=== PATIENT | female | born 1970 | race African-American/Black ===

== ENCOUNTER 2017-02-14 00:14 | Emergency (ER) | payer OTHER ==
[2017-02-14 01:12] VITALS: BP 146/87; PULSE 89; TEMP 98.1; BMI 24.3
[2017-02-14] MEDS ORDERED: CLINDAMYCIN HCL 150 MG CAPSULE (FP) PO ONE (01:43)
[2017-02-14] MEDS ORDERED: traMADol HCL 50 MG TABLET PO ONE (01:43)
[2017-02-14] MEDS ORDERED: traMADol HCL 50 MG TABLET ONE (01:44)
[2017-02-14] MEDS ORDERED: CLINDAMYCIN HCL 150 MG CAPSULE (FP) ONE (01:44)
--- NOTE | 2017-02-14 01:51 | PDOC ---
History of Present Illness - General Chief Complaint: Toothache Stated Complaint: TOOTHACHE Time Seen by Provider: 02/14/17 01:15 History Source: Patient Exam Limitations: No Limitations - History of Present Illness Initial Comments: 02/14/17 01:47 46yo Female patient w/ PmHx: Diabetes presents to ED c/o dental pain. Patient states she went to see her dentist today, had cleaning done, and felt her gums were a little irritated. Patient states last night 10/10 dental pain, took 800mg Motrin with no relief. She denies fever, CP, Abd pain, Back pain, n/v/d, or any other complaints at this time. Timing/Duration: getting worse Severity: moderate Modifying Factors: worse with: cold therapy, eating, immobilization, medication , movement, rest, other Associated Symptoms: denies: denies symptoms, chest pain, cough, diaphoresis, fever/chills, headaches, loss of appetite, malaise, nausea/vomiting, rash, seizure, shortness of breath, syncope, weakness, other Past History - Travel Traveled outside of the country in the last 30 days: No Close contact w/someone who was outside of country & ill: No - Past Medical History Allergies/Adverse Reactions: Allergies Allergy/AdvReac Type Severity Reaction Status Date / Time morphine Allergy Itching Verified 02/14/17 01:12 Home Medications: Ambulatory Orders Ibuprofen [Motrin -] 800 mg PO TID #30 tablet 02/21/15 Buspirone HCl 100 mg PO DAILY 02/14/17 Clindamycin [Cleocin -] 300 mg PO ONCE #1 capsule 02/14/17 Clindamycin [Cleocin -] 300 mg PO TID #21 capsule 02/14/17 Insulin Degludec [Tresiba Flextouch U-100] 70 units SQ DAILY 02/14/17 Metoprolol Tartrate [Lopressor -] 25 mg PO DAILY 02/14/17 Sertraline HCl [Zoloft] 100 mg PO DAILY 02/14/17 Tramadol HCl 50 mg PO Q6H PRN #16 tablet MDD 4 tab 02/14/17 COPD: Yes Diabetes: Yes (borderline) HTN: Yes Suicide Attempt (Hx): No - Surgical History Abdominal Surgery: Yes Cholecystectomy: Yes - Immunization History Immunization Up to Date: Yes - Psycho/Social/Smoking Cessation Hx Anxiety: No Suicidal Ideation: No Smoking Status: No Smoking History: Never smoked Have you smoked in the past 12 months: No Number of Cigarettes Smoked Daily: 0 If you are a former smoker, when did you quit?: 2004 Information on smoking cessation initiated: No Hx Alcohol Use: No Drug/Substance Use Hx: No Substance Use Type: None Review of Systems - Review of Systems Able to Perform ROS?: Yes Is the patient limited Maltese proficient: No Constitutional: No: Chills, Fever HEENTM: Yes: Dental Problems Respiratory: No: Cough, Stridor, Wheezing Cardiac (ROS): No: Chest Pain, Chest Tightness ABD/GI: No: Abdominal Distended, Blood Streaked Bowels, Constipated, Diarrhea, Difficulty Swallowing, Nausea, Poor Appetite, Poor Fluid Intake, Rectal Bleeding , Vomiting, Indigestion, Abdominal cramping : No: Burning, Dysuria, Discharge, Hematuria Musculoskeletal: No: Back Pain Integumentary: No: Bruising, Dryness, Erythema, Rash Neurological: No: Headache All Other Systems: Reviewed and Negative *Physical Exam - Vital Signs Last Vital Signs Temp Pulse Resp BP Pulse Ox 98.1 F 89 20 146/87 98 02/14/17 01:10 02/14/17 01:10 02/14/17 01:10 02/14/17 01:10 02/14/17 01:10 - Physical Exam General Appearance: Yes: Nourished, Appropriately Dressed. No: Apparent Distress, Mild Distress, Moderate Distress, Severe Distress HEENT: positive: EOMI, SAUL, Normal ENT Inspection, Normal Voice, Symmetrical, TMs Normal, Pharynx Normal, Other (Mild gumline irritation noted to lower right mandible, tooth #32 with mild decay.) Neck: positive: Trachea midline, Normal Thyroid, Supple. negative: Lymphadenopathy (R), Lymphadenopathy (L) Respiratory/Chest: positive: Lungs Clear, Normal Breath Sounds. negative: Chest Tender, Respiratory Distress, Accessory Muscle Use, Labored Respiration, Rapid RR Cardiovascular: positive: Regular Rhythm, Regular Rate Gastrointestinal/Abdominal: positive: Normal Bowel Sounds, Soft. negative: Distended, Guarding, Rebound, Tenderness Musculoskeletal: positive: Normal Inspection. negative: CVA Tenderness, Decreased Range of Motion, Vertebral Tenderness Extremity: positive: Normal Capillary Refill, Normal Inspection, Normal Range of Motion. 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 II-XII NML intact, Fully Oriented, Alert, Normal Mood/ Affect, Normal Response, Motor Strength 5/5 Heart Score/ECG Review - ECG Impressions Normal ECG: Yes Non-specific ST Elevation: No Ischemic Changes: No Bradycardia: No Torsades [place] Pointes: No WPW: No Comment:: 02/14/17 02:04 0158 Hr- 73 QRS-96 ED Treatment Course - Medications Given in the ED: ED Medications Discontinued Medications Generic Name Dose Route Start Last Admin Trade Name Freq PRN Reason Stop Dose Admin Clindamycin HCl 300 mg 02/14/17 01:43 02/14/17 01:46 Cleocin - PO 02/14/17 01:44 300 mg ONCE ONE Administration Tramadol HCl 50 mg 02/14/17 01:43 02/14/17 01:46 Ultram - PO 02/14/17 01:44 50 mg ONCE ONE Administration *DC/Admit/Observation/Transfer Diagnosis at time of Disposition: Pain, dental - Discharge Dispostion Disposition: HOME Condition at time of disposition: Stable Admit: No - Prescriptions Prescriptions: Clindamycin [Cleocin -] 300 mg PO ONCE #1 capsule Clindamycin [Cleocin -] 300 mg PO TID #21 capsule Tramadol HCl 50 mg PO Q6H PRN #16 tablet MDD 4 tab PRN Reason: Severe Pain - Referrals Referrals: Bernardo Ash [Primary Care Provider] - - Patient Instructions Printed Discharge Instructions: DI for Dental Pain Additional Instructions: Follow up with your dentist tomorrow morning. Call to schedule emergency surgery. Return if symptoms worsen or any concerns for further evaluation. Print Language: MALTESE
--- NOTE | 2017-02-14 02:10 | PDOC ---
*Physical Exam - Vital Signs Last Vital Signs Temp Pulse Resp BP Pulse Ox 98.1 F 89 20 146/87 98 02/14/17 01:10 02/14/17 01:10 02/14/17 01:10 02/14/17 01:10 02/14/17 01:10 ED Treatment Course - Medications Given in the ED: ED Medications Discontinued Medications Generic Name Dose Route Start Last Admin Trade Name Freq PRN Reason Stop Dose Admin Clindamycin HCl 300 mg 02/14/17 01:43 02/14/17 01:46 Cleocin - PO 02/14/17 01:44 300 mg ONCE ONE Administration Tramadol HCl 50 mg 02/14/17 01:43 02/14/17 01:46 Ultram - PO 02/14/17 01:44 50 mg ONCE ONE Administration Medical Decision Making - Medical Decision Making 02/14/17 02:09 agree with care from MAGALIS Brasher *DC/Admit/Observation/Transfer Diagnosis at time of Disposition: Pain, dental - Prescriptions Prescriptions: Clindamycin [Cleocin -] 300 mg PO ONCE #1 capsule Tramadol HCl 50 mg PO Q6H PRN #16 tablet MDD 4 tab PRN Reason: Severe Pain - Referrals Referrals: Bernardo Ash [Primary Care Provider] - - Patient Instructions - Post Discharge Activity
[2017-02-14] MEDS ORDERED: KETOROLAC TROMETHAMINE 30 MG/1 ML VIAL IM ONE (02:28)
[2017-02-14] MEDS ORDERED: KETOROLAC TROMETHAMINE 30 MG/1 ML VIAL ONE (02:29)
--- NOTE | 2017-02-14 12:05 | EKG ---
Test Reason : Blood Pressure : / mmHG Vent. Rate : 073 BPM Atrial Rate : 073 BPM P-R Int : 164 ms QRS Dur : 096 ms QT Int : 424 ms P-R-T Axes : 041 059 020 degrees QTc Int : 467 ms NORMAL SINUS RHYTHM NORMAL ECG Confirmed by MD MALLORY GREGORY ([id number]) on 02/14/2017 12:05:05 PM Referred By: Confirmed By:DALTON MALLORY MD
== END 2017-02-14 02:42 | disposition home or self-care (01) ==
LOC: JER 00:14
PROC: 3E0233Z Introduction of Anti-inflammatory into Muscle, Percutaneous Approach (ICD-10-PCS; principal; 2017-02-14)
DX: K08.9 Disorder of teeth and supporting structures, unspecified (principal); I10 Essential (primary) hypertension; E11.9 Type 2 diabetes mellitus without complications; Z79.4 Long term (current) use of insulin; J44.9 Chronic obstructive pulmonary disease, unspecified
CPT/HCPCS: 93005; 93010; 96372; 99282-25

== ENCOUNTER 2019-02-14 22:57 | Emergency (ER) | payer OTHER ==
[2019-02-14 23:05] VITALS: TEMP 98.7; BMI 33.6
--- NOTE | 2019-02-15 00:35 | PDOC ---
History of Present Illness - General Chief Complaint: Abscess Boil Stated Complaint: DIZZY Time Seen by Provider: 02/15/19 00:33 - History of Present Illness Initial Comments: 02/15/19 00:35 Ms. Aldana is a 48 yo female w/ pmh of DM who presents for evaluation of 2 day history of R hip abscess/boil she reports started as a bug bite. Presents as it has not improved and she believes it may need to be drained. Also reports sugars have been increased to 250's today. Denies other symptoms at this time. The patient denies chest pain, shortness of breath, headache and dizziness. Denies fever, chills, nausea, vomit, diarrhea and constipation. Denies dysuria, frequency, urgency and hematuria. Past History - Past Medical History Allergies/Adverse Reactions: Allergies Allergy/AdvReac Type Severity Reaction Status Date / Time morphine Allergy Itching Verified 02/14/19 22:59 Home Medications: Ambulatory Orders Ibuprofen [Motrin -] 800 mg PO TID #30 tablet 02/21/15 Buspirone HCl 100 mg PO DAILY 02/14/17 Clindamycin [Cleocin -] 300 mg PO ONCE #1 capsule 02/14/17 Clindamycin [Cleocin -] 300 mg PO TID #21 capsule 02/14/17 Insulin Degludec [Tresiba Flextouch U-100] 70 units SQ DAILY 02/14/17 Metoprolol Tartrate [Lopressor -] 25 mg PO DAILY 02/14/17 Sertraline HCl [Zoloft] 100 mg PO DAILY 02/14/17 Tramadol HCl 50 mg PO Q6H PRN #16 tablet MDD 4 tab 02/14/17 Amoxicillin/Potassium Clav [Augmentin 875-125 Tablet] 1 each PO BID #14 tablet 02/15/19 COPD: Yes Diabetes: Yes (borderline) HTN: Yes - Surgical History Abdominal Surgery: Yes Cholecystectomy: Yes - Immunization History Immunization Up to Date: Yes - Suicide/Smoking/Psychosocial Hx Smoking Status: No Smoking History: Never smoked Have you smoked in the past 12 months: No Number of Cigarettes Smoked Daily: 0 If you are a former smoker, when did you quit?: 2005 Information on smoking cessation initiated: No Hx Alcohol Use: No Drug/Substance Use Hx: No Substance Use Type: None Review of Systems - Review of Systems Comments:: 02/15/19 00:35 GENERAL/CONSTITUTIONAL: No fever or chills. No weakness. HEAD, EYES, EARS, NOSE AND THROAT: No change in vision. No ear pain or discharge. No sore throat. CARDIOVASCULAR: No chest pain or shortness of breath RESPIRATORY: No cough, wheezing, or hemoptysis. GASTROINTESTINAL: No nausea, vomiting, diarrhea or constipation. GENITOURINARY: No dysuria, frequency, or change in urination. MUSCULOSKELETAL: +R hip pain / abscess for 2 days. No joint or muscle swelling or pain. No neck or back pain. SKIN: No rash NEUROLOGIC: No headache, vertigo, loss of consciousness, or change in strength/ sensation. ENDOCRINE: No increased thirst. No abnormal weight change HEMATOLOGIC/LYMPHATIC: No anemia, easy bleeding, or history of blood clots. ALLERGIC/IMMUNOLOGIC: No hives or skin allergy. *Physical Exam - Vital Signs Last Vital Signs Temp Pulse Resp BP Pulse Ox 98.7 F 134 H 18 129/83 100 02/14/19 23:00 02/14/19 23:00 02/14/19 23:00 02/14/19 23:00 02/14/19 23:00 - Physical Exam Comments: 02/15/19 00:35 GENERAL: +Patient morbidly obese. Awake, alert, and fully oriented, in no acute distress HEAD: No signs of trauma, normocephalic, atraumatic EYES: PERRLA, EOMI, sclera anicteric, conjunctiva clear ENT: Auricles normal inspection, hearing grossly normal, nares patent, oropharynx clear without exudates. Moist mucosa NECK: Normal ROM, supple, no lymphadenopathy, JVD, or masses LUNGS: No distress, speaks full sentences, clear to auscultation bilaterally HEART: Regular rate and rhythm, normal S1 and S2, no murmurs, rubs or gallops, peripheral pulses normal and equal bilaterally. ABDOMEN: Soft, nontender, normoactive bowel sounds. No guarding, no rebound. No masses EXTREMITIES: +Approx 3-4 cm radius cellulitic area w/ 1 cm diameter open wound c /w scratching. Otherwise normal inspection, normal range of motion, no edema. No clubbing or cyanosis. NEUROLOGICAL: Cranial nerves II through XII grossly intact. Normal speech, normal gait, no focal sensorimotor deficits SKIN: Warm, Dry, normal turgor, no rashes or lesions noted. ED Treatment Course - LABORATORY CBC & Chemistry Diagram: 02/15/19 01:20 02/15/19 01:20 Medical Decision Making - Medical Decision Making 02/15/19 00:51 Ms. Aldana is a 48 yo female w/ pmh as described hwo presents for evaluation of L hip cellulitis. US evaluation at bedside revealed local cobblestoning w/ out discrete drainable abscess. Patient will be started on ABX for treatment and sent home for further outpatient evaluation as needed. 02/15/19 02:33 Patient given dose of IV ABX in ED and Rx sent to patient's pharmacy. Patient noted to have elevated BGM as below to 514. Patient given 1L NS and will re- check BGM at home and take insulin accordingly as needed. Discharging to home. Laboratory Results - last 24 hr 02/15/19 02/15/19 01:20 01:20 WBC 12.8 H RBC 4.97 Hgb 12.8 Hct 38.2 MCV 76.8 L MCH 25.8 MCHC 33.6 RDW 14.4 Plt Count 263 MPV 8.9 Absolute Neuts (auto) 9.2 H Neutrophils % 71.8 Lymphocytes % 18.5 Monocytes % 7.8 Eosinophils % 1.5 Basophils % 0.4 Nucleated RBC % 0 Sodium 134 L Potassium 3.8 Chloride 96 L Carbon Dioxide 28 Anion Gap 10 BUN 13.6 Creatinine 1.1 Est GFR (CKD-EPI)AfAm 67.79 Est GFR (CKD-EPI)NonAf 58.49 Random Glucose 514 H* Calcium 9.2 *DC/Admit/Observation/Transfer Diagnosis at time of Disposition: Abscess of skin AND/OR subcutaneous tissue - Discharge Dispostion Disposition: HOME Condition at time of disposition: Improved - Prescriptions Prescriptions: Amoxicillin/Potassium Clav [Augmentin 875-125 Tablet] 1 each PO BID #14 tablet - Referrals Referrals: Bernardo Ash [Primary Care Provider] - - Patient Instructions Printed Discharge Instructions: DI for Cellulitis -- Adult Additional Instructions: You were evaluated today in the ER for your skin infection. We evaluated you with ultrasound and started you on antibiotics. We sent a prescription to your pharmacy - please take all medications as proscribed. Follow-up with primary care provider later this week for further evaluation. Return to ER if any fever , chills, pain, or other concerning symptoms. - Post Discharge Activity Forms/Work/School Notes: Back to Work
[2019-02-15] MEDS ORDERED: AMPICILLIN NA/SULBACTAM NA 3 GM in SODIUM CHLORIDE 100 ML IVPB ONE (00:54)
[2019-02-15] MEDS ORDERED: SODIUM CHLORIDE 1,000 ML IV STA (00:54)
[2019-02-15] MEDS ORDERED: ACETAMINOPHEN 500 MG TABLET (FP) PO ONE (01:16)
[2019-02-15] MEDS ORDERED: ACETAMINOPHEN 325 MG TABLET (FP) ONE (01:22)
[2019-02-15 01:35] LABS: BASO % 0.4 % (0-2.0); EOS % 1.5 % (0-4.5); HEMATOCRIT 38.2 % (32.4-45.2); HEMOGLOBIN 12.8 GM/dL (10.7-15.3); LYMPH % 18.5 % (8-40); MCH 25.8 pg (25.7-33.7); MCHC 33.6 g/dl (32.0-36.0); MEAN CELL VOLUME 76.8 fl (80-96); MEAN PLT VOLUME 8.9 fl (7.5-11.1); MONO % 7.8 % (3.8-10.2); NEUT % 71.8 % (42.8-82.8); PLATELET COUNT 263 K/MM3 (134-434); RBC 4.97 M/mm3 (3.60-5.2); RDW 14.4 % (11.6-15.6); WHITE BLOOD COUNT 12.8 K/mm3 (4.0-10.0)
[2019-02-15 02:19] LABS: BLOOD UREA NITROGEN 13.6 mg/dL (7-18); CALCIUM 9.2 mg/dL (8.5-10.1); CREATININE 1.1 mg/dL (0.55-1.3); POTASSIUM 3.8 mmol/L (3.5-5.1)
--- NOTE | 2019-02-15 02:24 | PDOC ---
Attending Attestation - Resident Resident Name: João Alba - ED Attending Attestation I have performed the following: I have examined & evaluated the patient, The case was reviewed & discussed with the resident, I agree w/resident's findings & plan - HPI HPI: 02/15/19 02:20 Pt comes with right lateral buttock cellulitis/abscess that has completely drained. Pt had a bedside sono done by ourselves, that demonstrates that she has no collection there. Pt will get basic labs for a baseline level in case she gets worse in the coming days. 02/15/19 02:23 - Physicial Exam PE: 02/15/19 02:23 Agree with resident exam. Pt's HR is 96 at this time and she remains afebrile. - Medical Decision Making 02/15/19 02:23 Pt will be given an IV dose of abx here. Pt will be sent home with augmentin 875 BID and she will be asked to return for worsening infection. Stable to go home. Labs normal.
[2019-02-15 02:33] VITALS: BP 122/78; PULSE 102
== END 2019-02-15 02:37 | disposition home or self-care (01) ==
LOC: JER 22:57
DX: L02.416 Cutaneous abscess of left lower limb (principal); I10 Essential (primary) hypertension; E11.9 Type 2 diabetes mellitus without complications; Z79.4 Long term (current) use of insulin
CPT/HCPCS: 36415; 80048; 85025; 96365; 99282-25; J7030

== ENCOUNTER 2019-06-18 09:26 | Emergency (ER) | payer OTHER ==
[2019-06-18 09:37] VITALS: PULSE 95; TEMP 98; BMI 35.2
[2019-06-18] MEDS ORDERED: FLUCONAZOLE 150 MG TABLET PO ONE ×2 (09:59→10:05)
--- NOTE | 2019-06-18 09:59 | PDOC ---
History of Present Illness - General Chief Complaint: Vaginal Sxs Stated Complaint: Allergic Reaction Time Seen by Provider: 06/18/19 09:39 History Source: Patient - History of Present Illness Initial Comments: 06/18/19 10:59 48-year-old female brought in complaining of vaginal itching, dysuria for the past 1 day. Patient took Monistat at 2 AM with no significant improvement in symptoms. Patient denies nausea, vomiting, fever, chills, abdominal pain.. Patient also reported that she did not take her morning medication including anti-hypertensive medication. Denies headache, chest pain, dizziness, diaphoresis. Past medical history of hypertension, diabetes uncontrolled Past History - Past Medical History Allergies/Adverse Reactions: Allergies Allergy/AdvReac Type Severity Reaction Status Date / Time morphine Allergy Itching Verified 06/18/19 09:29 Home Medications: Ambulatory Orders Albuterol Sulfate Inhaler - [Ventolin Hfa Inhaler -] 1 - 2 inh PO Q4H 06/18/19 Aspirin [Aspirin EC] 81 mg PO DAILY 06/18/19 Cefuroxime Axetil [Cefuroxime] 500 mg PO BID #20 tablet 06/18/19 Dulaglutide [Trulicity] 1.5 mg SQ ASDIR 06/18/19 Fluconazole 150 mg PO ONCE #1 tablet 06/18/19 Gabapentin 300 mg PO Q8H 06/18/19 Insulin Glargine,Hum.rec.anlog [Basaglar Kwikpen U-100] 100 unit SQ DAILY Linaclotide [Linzess] 1 tab PO DAILY 06/18/19 Losartan/Hydrochlorothiazide [Losartan-Hctz 50-12.5 mg Tab] 1 each PO DAILY Metoprolol Succinate [Toprol Xl] 25 mg PO DAILY 06/18/19 Miconazole Nitrate [Miconazole 3] 1 each VG DAILY #1 combo..pkg 06/18/19 Pravastatin Sodium [Pravachol] 40 mg PO HS 06/18/19 Tioconazole [Tioconazole-1] 4.6 gm VG ONCE 06/18/19 Tiotropium [place] [Spiriva Respimat] 2 inh IH BID 06/18/19 COPD: Yes Diabetes: Yes (borderline) HTN: Yes - Surgical History Abdominal Surgery: Yes Cholecystectomy: Yes - Immunization History Td Vaccination: Yes TDAP Vaccination: Yes Immunization Up to Date: Yes - Psycho Social/Smoking Cessation Hx Smoking Status: No Smoking History: Unknown if ever smoked Have you smoked in the past 12 months: No Number of Cigarettes Smoked Daily: 0 If you are a former smoker, when did you quit?: 2005 Hx Alcohol Use: No Drug/Substance Use Hx: No Substance Use Type: None Abd/GI Specific PMHX - Complaint Specific PMHX GERD: No GI Ulcer Disease: No Review of Systems - Review of Systems Able to Perform ROS?: Yes Is the patient limited Kosovan proficient: No Constitutional: No: Symptoms Reported, See HPI, Chills, Diaphoresis, Fever, Loss of Appetite, Malaise, Night Sweats, Weakness, Weight Stable, Unintentional Wgt. Loss, Unexplained wgt Loss, Other : Yes: Burning, Dysuria, Flank Pain (left), Other (vaginal itching). No: Symptoms Reported, See HPI, Discharge, Frequency, Hematuria, Incontinence, Pain , Urgency, Testicular Mass, Testicular Swelling, Lesions, Testicular Pain *Physical Exam - Vital Signs Last Vital Signs Temp Pulse Resp BP Pulse Ox 98 F 95 H 18 153/100 95 06/18/19 09:35 06/18/19 09:35 06/18/19 09:35 06/18/19 09:35 06/18/19 09:35 - Physical Exam General Appearance: Yes: Appropriately Dressed Female Pelvic Exam: positive: normal external exam, other (coattage cheese appearing vaginal discharge, os is closed. vulva vaginitis) Gastrointestinal/Abdominal: positive: Normal Bowel Sounds, Soft. negative: Tender Musculoskeletal: negative: CVA Tenderness, CVA Tenderness (L) Extremity: positive: Normal Capillary Refill, Normal Inspection, Normal Range of Motion Integumentary: positive: Normal Color, Dry, Warm Neurologic: positive: Fully Oriented, Alert, Normal Mood/Affect ED Progress Note - Progress Note Progress Note: UTI; vaginitis P: ua urinje culture fluconazole Discharge - Discharge Information Problems reviewed: Yes Clinical Impression/Diagnosis: Vagina, candidiasis UTI (urinary tract infection) Qualifiers: Urinary tract infection type: acute cystitis Hematuria presence: without hematuria Qualified Code(s): N30.00 - Acute cystitis without hematuria Vaginitis Qualifiers: Chronicity: acute Qualified Code(s): N76.0 - Acute vaginitis Disposition: HOME - Additional Discharge Information Prescriptions: Cefuroxime Axetil [Cefuroxime] 500 mg PO BID #20 tablet Fluconazole 150 mg PO ONCE #1 tablet Miconazole Nitrate [Miconazole 3] 1 each VG DAILY #1 combo..pkg - Follow up/Referral Referrals: Bernardo Ash [Primary Care Provider] - - Patient Discharge Instructions Patient Printed Discharge Instructions: Urinary Tract Infection Additional Instructions: Drink plenty of fluids take an additional dose of fluconazole at home in 2 days. use the vaginal cream three times daily Take cefuroxime as prescribed Follow-up with your primary care doctor as soon as possible. You need to repeat urine test once your antibiotic is completed. We will call you if you're antibiotic needs to be changed. - Post Discharge Activity
[2019-06-18] MEDS ORDERED: LOSARTAN 50MG/HCTZ 12.5MG 1 TAB (FP) PO ONE (10:16)
[2019-06-18 10:47] LABS: EPI CELLS 2.3 /HPF (0-5/HPF); HYALINE CASTS 2 /lpf (0-8); PH,URINE 5.5 (5.0-8.0); URINE APPEARANCE CLOUDY; URINE BACTERIA 1417.6 /hpf (NEGATIVE); URINE BILIRUBIN NEGATIVE (NEGATIVE); URINE COLOR YELLOW; URINE GLUCOSE (UA) 3+ (NEGATIVE); URINE KETONE NEGATIVE (NEGATIVE); URINE LEUK ESTERASE 2+ (NEGATIVE); URINE NITRITE NEGATIVE (NEGATIVE); URINE PROTEIN NEGATIVE (NEGATIVE); URINE UROBILINOGEN 0.2 mg/dL (0.2-1.0); URINE WBC 36 /hpf (0-5)
[2019-06-18 10:58] VITALS: BP 134/95
[2019-06-18 20:21] LABS: URINE RBC 23.7 /hpf (0-4)
== END 2019-06-18 11:25 | disposition home or self-care (01) ==
LOC: JERFT 09:26
DX: B37.3 Candidiasis of vulva and vagina (principal); N76.0 Acute vaginitis; N30.00 Acute cystitis without hematuria; Z88.5 Allergy status to narcotic agent; I10 Essential (primary) hypertension; J44.9 Chronic obstructive pulmonary disease, unspecified; E11.9 Type 2 diabetes mellitus without complications; Z79.4 Long term (current) use of insulin
CPT/HCPCS: 81003; 87086; 87186; 99281-25

== ENCOUNTER 2020-11-02 15:13 | Inpatient (IN) | payer OTHER ==
[2020-11-02 15:30] VITALS: BMI 33.3
[2020-11-02] MEDS ORDERED: SODIUM CHLORIDE 0.9% 500 ML INFUS.BAG IV ONE ×2 (16:05→19:06)
[2020-11-02 18:38] LABS: BASO % 0.6 % (0-2.0); EOS % 0.4 % (0-4.5); HEMATOCRIT 43.7 % (32.4-45.2); HEMOGLOBIN 14.3 GM/dL (10.7-15.3); LYMPH % 11.7 % (8-40); MCH 25.9 pg (25.7-33.7); MCHC 32.8 g/dl (32.0-36.0); MEAN CELL VOLUME 79.1 fl (80-96); MEAN PLT VOLUME 10.8 fl (7.5-11.1); MONO % 9.6 % (3.8-10.2); NEUT % 77.7 % (42.8-82.8); PLATELET COUNT 243 K/MM3 (134-434); RBC 5.53 M/mm3 (3.60-5.2); RDW 13.8 % (11.6-15.6); WHITE BLOOD COUNT 14.9 K/mm3 (4.0-10.0)
[2020-11-02 18:59] LABS: CHLORIDE 97 mmol/L (98-107); SODIUM 134 mmol/L (136-145)
[2020-11-02 19:02] LABS: CALCIUM 9.6 mg/dL (8.5-10.1)
[2020-11-02 19:03] LABS: ALBUMIN 3.3 g/dl (3.4-5.0); ANION GAP 8 MMOL/L (8-16); BLOOD UREA NITROGEN 10.8 mg/dL (7-18); CO2 29 mmol/L (21-32); GLUCOSE,RANDOM 323 mg/dL (74-106)
[2020-11-02 19:06] LABS: CREATININE 0.9 mg/dL (0.55-1.3); SGOT/AST 24 U/L (15-37); SGPT/ALT 28 U/L (13-61)
[2020-11-02 19:07] LABS: BILIRUBIN,TOTAL 1.1 mg/dL (0.2-1); TOT PROT 7.8 g/dl (6.4-8.2)
[2020-11-02] MEDS ORDERED: INSULIN REGULAR HUMAN 100 UNITS/ML *VIAL IVPUSH ONE (19:07)
[2020-11-02 19:09] LABS: ALK PHOS 157 U/L (45-117)
[2020-11-02] MEDS ORDERED: ALBUTEROL SO4 HFA INHALER IH PRN (21:49)
[2020-11-02] MEDS ORDERED: HEPARIN NA (PORCINE) 5,000 UNITS/ML 1ML VIAL ONE (22:01)
[2020-11-02] MEDS: HEPARIN NA (PORCINE) 5,000 UNITS/ML 1ML VIAL SQ SCH (22:11)
[2020-11-02] MEDS: INSULIN SLIDING SCALE (NOVOLOG) 1 VIAL SQ SCH (22:12)
[2020-11-02] MEDS ORDERED: ACETAMINOPHEN INJECTION 100 ML IVPB ONE (23:48)
[2020-11-03] MEDS ORDERED: ACETAMINOPHEN 1000 MG/100 ML BAG IVPB ONE (00:21)
[2020-11-03] MEDS ORDERED: CEFTRIAXONE 1 GM in DEXTROSE 5%-WATER - 50 ML IVPB ONE ×2 (05:47→17:18)
[2020-11-03] MEDS ORDERED: AZITHROMYCIN IVPB 500 MG in DEXTROSE 5%-WATER - 250 ML IVPB ONE (05:56)
[2020-11-03 06:54] LABS: BASO % 0.5 % (0-2.0); HEMATOCRIT 37.4 % (32.4-45.2); HEMOGLOBIN 12.6 GM/dL (10.7-15.3); LYMPH % 12.6 % (8-40); MCH 26.2 pg (25.7-33.7); MCHC 33.6 g/dl (32.0-36.0); MEAN PLT VOLUME 9.8 fl (7.5-11.1); NEUT % 79.9 % (42.8-82.8); PLATELET COUNT 196 K/MM3 (134-434); RBC 4.79 M/mm3 (3.60-5.2); RDW 13.4 % (11.6-15.6); WHITE BLOOD COUNT 10.1 K/mm3 (4.0-10.0)
[2020-11-03 07:18] LABS: CHLORIDE 106 mmol/L (98-107); SODIUM 138 mmol/L (136-145)
[2020-11-03 07:26] LABS: ALBUMIN 2.7 g/dl (3.4-5.0); ANION GAP 8 MMOL/L (8-16); BLOOD UREA NITROGEN 7.5 mg/dL (7-18); CALCIUM 8.4 mg/dL (8.5-10.1); CO2 24 mmol/L (21-32); GLUCOSE,RANDOM 283 mg/dL (74-106); MAGNESIUM 1.6 mg/dL (1.8-2.4)
[2020-11-03 07:28] LABS: BILIRUBIN,TOTAL 0.6 mg/dL (0.2-1)
[2020-11-03 07:29] LABS: ALK PHOS 145 U/L (45-117); CHOLESTEROL 163 mg/dL (50-200); CREATININE 0.8 mg/dL (0.55-1.3); SGOT/AST 43 U/L (15-37); SGPT/ALT 42 U/L (13-61); TRIGLYCERIDES 268 mg/dL (0-150)
[2020-11-03 07:30] LABS: HDL CHOLESTEROL 31 mg/dL (40-60); LDL CHOLESTEROL (ONLY SJRH) 77 mg/dL (5-100)
[2020-11-03 07:31] LABS: TOT PROT 6.6 g/dl (6.4-8.2)
[2020-11-03] MEDS ORDERED: ACETAMINOPHEN 325 MG TABLET (FP) PO PRN (07:33)
[2020-11-03] MEDS ORDERED: SODIUM CHLORIDE 1,000 ML IV SCH (07:45)
[2020-11-03] MEDS: INSULIN SLIDING SCALE (NOVOLOG) 1 VIAL SQ SCH ×3 (07:56→17:15)
[2020-11-03] MEDS ORDERED: POTASSIUM CHLORIDE TABS 20 MEQ TABLET.ER (FP) PO ONE (08:00)
[2020-11-03] MEDS ORDERED: cefTRIAXone SODIUM 1 GM VIAL ONE ×2 (08:34→18:10)
[2020-11-03] MEDS ORDERED: DEXTROSE 5%-WATER - 50 ML IVPB ONE ×2 (08:34→18:10)
[2020-11-03] MEDS: TIOTROPIUM BROMIDE 2.5 MCG (SPIRIVA) RESPIMAT INHALER IH SCH (09:14)
[2020-11-03] MEDS: ASPIRIN COATED 81 MG TABLET.EC PO SCH (09:15)
[2020-11-03] MEDS: HEPARIN NA (PORCINE) 5,000 UNITS/ML 1ML VIAL SQ SCH ×2 (09:15→22:42)
[2020-11-03] MEDS ORDERED: AZITHROMYCIN IVPB 500 MG/250 ML BAG IVPB ONE (09:30)
[2020-11-03] MEDS: ACETAMINOPHEN 325 MG TABLET (FP) PO PRN ×2 (15:11→22:34)
[2020-11-04 07:20] LABS: BASO % 0.5 % (0-2.0); EOS % 0.4 % (0-4.5); HEMATOCRIT 34.6 % (32.4-45.2); HEMOGLOBIN 11.6 GM/dL (10.7-15.3); LYMPH % 22.4 % (8-40); MCH 26.2 pg (25.7-33.7); MCHC 33.4 g/dl (32.0-36.0); MEAN CELL VOLUME 78.4 fl (80-96); MEAN PLT VOLUME 9.8 fl (7.5-11.1); MONO % 9.1 % (3.8-10.2); NEUT % 67.6 % (42.8-82.8); PLATELET COUNT 165 K/MM3 (134-434); RBC 4.41 M/mm3 (3.60-5.2); RDW 13.8 % (11.6-15.6); WHITE BLOOD COUNT 7.7 K/mm3 (4.0-10.0)
[2020-11-04] MEDS: INSULIN SLIDING SCALE (NOVOLOG) 1 VIAL SQ SCH ×5 (07:44→21:56)
[2020-11-04 07:45] LABS: CALCIUM 8.5 mg/dL (8.5-10.1)
[2020-11-04 07:46] LABS: ALBUMIN 2.3 g/dl (3.4-5.0); BLOOD UREA NITROGEN 3.9 mg/dL (7-18)
[2020-11-04 07:49] LABS: CREATININE 0.6 mg/dL (0.55-1.3)
[2020-11-04 07:50] LABS: BILIRUBIN,TOTAL 0.3 mg/dL (0.2-1)
[2020-11-04 07:51] LABS: TOT PROT 5.8 g/dl (6.4-8.2)
[2020-11-04] MEDS ORDERED: DEXTROSE 5%-WATER 100 ML IVPB ONE (08:02)
[2020-11-04] MEDS: LORATADINE 10 MG TABLET PO SCH (09:11)
[2020-11-04] MEDS: HEPARIN NA (PORCINE) 5,000 UNITS/ML 1ML VIAL SQ SCH ×2 (09:11→21:40)
[2020-11-04] MEDS: ASPIRIN COATED 81 MG TABLET.EC PO SCH (09:11)
[2020-11-04] MEDS: ACETAMINOPHEN 325 MG TABLET (FP) PO PRN ×2 (09:12→18:54)
[2020-11-04] MEDS: AZITHROMYCIN IVPB 500 MG/250 ML BAG IVPB SCH (09:13)
[2020-11-04] MEDS: CEFTRIAXONE 2 GM in DEXTROSE 5%-WATER 2 GM/100 ML BAG IVPB SCH (09:20)
[2020-11-04] MEDS: TIOTROPIUM BROMIDE 2.5 MCG (SPIRIVA) RESPIMAT INHALER IH SCH (09:21)
[2020-11-04] MEDS ORDERED: CEFTRIAXONE 1 GM in DEXTROSE 5%-WATER - 50 ML IVPB SCH (10:00)
[2020-11-04] MEDS ORDERED: AZITHROMYCIN IVPB 500 MG in DEXTROSE 5%-WATER - 250 ML IVPB SCH (10:00)
[2020-11-04] MEDS: INSULIN (LEVEMIR) 100 UNITS/ML UNITS SQ SCH (10:10)
[2020-11-04 11:15] LABS: SARS-CoV-2 NAA Not Detected (Not Detected)
[2020-11-04 11:49] LABS: URINE APPEARANCE CLEAR; URINE BILIRUBIN NEGATIVE (NEGATIVE); URINE COLOR YELLOW; URINE GLUCOSE (UA) 3+ (NEGATIVE); URINE KETONE 1+ (NEGATIVE); URINE LEUK ESTERASE NEGATIVE (NEGATIVE); URINE NITRITE NEGATIVE (NEGATIVE); URINE PROTEIN TRACE (NEGATIVE); URINE UROBILINOGEN 0.2 mg/dL (0.2-1.0)
[2020-11-04] MEDS ORDERED: POTASSIUM CHLORIDE TABS 10 MEQ TABLET.ER (FP) PO ONE (13:04)
[2020-11-05] MEDS: INSULIN SLIDING SCALE (NOVOLOG) 1 VIAL SQ SCH ×4 (06:04→21:47)
[2020-11-05] MEDS: INSULIN (LEVEMIR) 100 UNITS/ML UNITS SQ SCH (06:05)
[2020-11-05 07:12] LABS: BASO % 0.7 % (0-2.0); EOS % 1.8 % (0-4.5); HEMATOCRIT 35.4 % (32.4-45.2); HEMOGLOBIN 11.6 GM/dL (10.7-15.3); LYMPH % 27.9 % (8-40); MCHC 32.7 g/dl (32.0-36.0); MEAN CELL VOLUME 79.3 fl (80-96); MEAN PLT VOLUME 9.5 fl (7.5-11.1); MONO % 16.1 % (3.8-10.2); NEUT % 53.5 % (42.8-82.8); PLATELET COUNT 196 K/MM3 (134-434); RBC 4.47 M/mm3 (3.60-5.2); RDW 13.9 % (11.6-15.6); WHITE BLOOD COUNT 6.8 K/mm3 (4.0-10.0)
[2020-11-05 07:49] LABS: ALBUMIN 2.5 g/dl (3.4-5.0); BLOOD UREA NITROGEN 4.8 mg/dL (7-18); CALCIUM 8.3 mg/dL (8.5-10.1)
[2020-11-05 07:51] LABS: MAGNESIUM 1.8 mg/dL (1.8-2.4)
[2020-11-05 07:53] LABS: CREATININE 0.7 mg/dL (0.55-1.3)
[2020-11-05 07:54] LABS: BILIRUBIN,TOTAL 0.2 mg/dL (0.2-1); TOT PROT 6.5 g/dl (6.4-8.2)
[2020-11-05] MEDS ORDERED: DEXTROSE 5%-WATER 100 ML IVPB ONE (08:27)
[2020-11-05 08:54] LABS: ANISOCYTOSIS 0; HELMET CELLS 0; HOWELL-JOLLY BODIES 0; MACROCYTOSIS 0; OVALOCYTE 0; PLATELET ESTIMATE NORMAL; ROULEAU 0; SICKELED CELLS 0; TARGET CELLS 0; TEAR DROP CELLS 0; TOXIC GRANULATION 0
[2020-11-05] MEDS: LORATADINE 10 MG TABLET PO SCH (10:10)
[2020-11-05] MEDS: ASPIRIN COATED 81 MG TABLET.EC PO SCH (10:10)
[2020-11-05] MEDS: HEPARIN NA (PORCINE) 5,000 UNITS/ML 1ML VIAL SQ SCH ×2 (10:11→21:42)
[2020-11-05] MEDS: CEFTRIAXONE 2 GM in DEXTROSE 5%-WATER 2 GM/100 ML BAG IVPB SCH (10:12)
[2020-11-05] MEDS: AZITHROMYCIN IVPB 500 MG/250 ML BAG IVPB SCH (10:12)
[2020-11-05 10:22] LABS: HIV INTERPRETATION NEGATIVE (NEGATIVE)
[2020-11-05] MEDS: TIOTROPIUM BROMIDE 2.5 MCG (SPIRIVA) RESPIMAT INHALER IH SCH (10:30)
[2020-11-05] MEDS: POTASSIUM CHLORIDE TABS 20 MEQ TABLET.ER (FP) PO SCH ×2 (11:14→14:52)
[2020-11-05] MEDS ORDERED: PT OWN MED DRAWER 7, Y5N ONE (14:57)
[2020-11-05] MEDS: AMPICILLIN NA/SULBACTAM NA 1.5 GM in SODIUM CHLORIDE 100 ML IVPB SCH ×2 (15:10→21:59)
[2020-11-06] MEDS: AMPICILLIN NA/SULBACTAM NA 1.5 GM in SODIUM CHLORIDE 100 ML IVPB SCH ×2 (03:43→09:53)
[2020-11-06] MEDS: ACETAMINOPHEN 325 MG TABLET (FP) PO PRN (04:10)
[2020-11-06] MEDS: INSULIN SLIDING SCALE (NOVOLOG) 1 VIAL SQ SCH ×3 (06:18→16:51)
[2020-11-06 06:55] LABS: BASO % 0.3 % (0-2.0); EOS % 2.9 % (0-4.5); HEMATOCRIT 32.3 % (32.4-45.2); HEMOGLOBIN 10.8 GM/dL (10.7-15.3); LYMPH % 33.2 % (8-40); MCHC 33.3 g/dl (32.0-36.0); MEAN CELL VOLUME 78.1 fl (80-96); MEAN PLT VOLUME 9.2 fl (7.5-11.1); MONO % 16.7 % (3.8-10.2); NEUT % 46.9 % (42.8-82.8); PLATELET COUNT 250 K/MM3 (134-434); RBC 4.14 M/mm3 (3.60-5.2); RDW 13.8 % (11.6-15.6); WHITE BLOOD COUNT 8.5 K/mm3 (4.0-10.0)
[2020-11-06] MEDS ORDERED: INSULIN (LEVEMIR) 100 UNITS/ML UNITS SQ SCH (07:00)
[2020-11-06 07:30] LABS: ALBUMIN 2.5 g/dl (3.4-5.0); BLOOD UREA NITROGEN 5.5 mg/dL (7-18); CALCIUM 8.5 mg/dL (8.5-10.1)
[2020-11-06 07:34] LABS: CREATININE 0.6 mg/dL (0.55-1.3)
[2020-11-06 07:35] LABS: BILIRUBIN,TOTAL 0.2 mg/dL (0.2-1); TOT PROT 6.1 g/dl (6.4-8.2)
[2020-11-06] MEDS ORDERED: AMPICILLIN NA/SULBACTAM NA 1.5 GM VIAL ONE (09:49)
[2020-11-06] MEDS ORDERED: SODIUM CHLORIDE 100 ML IVPB ONE (09:49)
[2020-11-06] MEDS: LORATADINE 10 MG TABLET PO SCH (09:53)
[2020-11-06] MEDS: HEPARIN NA (PORCINE) 5,000 UNITS/ML 1ML VIAL SQ SCH (09:53)
[2020-11-06] MEDS: ASPIRIN COATED 81 MG TABLET.EC PO SCH (09:53)
[2020-11-06] MEDS: TIOTROPIUM BROMIDE 2.5 MCG (SPIRIVA) RESPIMAT INHALER IH SCH (09:54)
[2020-11-06] MEDS ORDERED: POLYETHYLENE GLYCOL 3350 119 GM BTL PO SCH ×2 (10:00→14:56)
[2020-11-06] MEDS ORDERED: INSULIN (NOVOLOG) ASPART 100 UNITS/ML 10ML VIAL ONE (11:47)
[2020-11-06 13:18] LABS: PLATELET ESTIMATE ADEQUATE
[2020-11-06 14:52] VITALS: BP 151/84; PULSE 93; TEMP 98.3
[2020-11-06] MEDS ORDERED: AMOX TR/POT CLAV 875MG/125MG TABLETS (FP) PO SCH (17:30)
[2020-11-06] MEDS ORDERED: SENNOSIDES 8.6MG TABLET (FP) PO SCH (22:00)
== END 2020-11-06 17:15 | disposition home or self-care (01) | DRG 463 ==
LOC: JER 15:13 → J4W 19:10
PROVIDERS: ADMIT Hospitalist; ATTEND Family Medicine
DX: N39.0 Urinary tract infection, site not specified (principal); R00.0 Tachycardia, unspecified; I10 Essential (primary) hypertension; E78.5 Hyperlipidemia, unspecified; E11.9 Type 2 diabetes mellitus without complications; Z79.4 Long term (current) use of insulin; E05.90 Thyrotoxicosis, unspecified without thyrotoxic crisis or storm; K59.00 Constipation, unspecified; I95.1 Orthostatic hypotension; D64.9 Anemia, unspecified; B96.20 Unspecified Escherichia coli [E. coli] as the cause of diseases classified elsewhere
CPT/HCPCS: 36415; 71045-TC-FY; 71046-TC-FY; 71275-TC; 74177-TC; 80048; 80053; 80061; 81003; 82550; 82607; 82728; 82962; 83036; 83605; 83615; 83721; 83735; 84439; 84443; 84481; 84484; 85025; 85379; 85651; 86038; 86140; 86480; 86769; 86780; 87040; 87086; 87186; 87389; 93005; 93010; 93306-TC; 93970-TC; 99285-25; C9803; J0131; J1644; Q9967; U0003; U0005

== ENCOUNTER 2021-06-15 02:13 | Emergency (ER) | payer OTHER ==
[2021-06-15 03:26] VITALS: BP 132/97; PULSE 91; TEMP 97.6; BMI 32.5
[2021-06-15] MEDS ORDERED: TETRACAINE 0.5% HCL 0.6ML DROPPER.BOTTLE OS ONE (03:46)
[2021-06-15] MEDS ORDERED: TETRACAINE 0.5% OPHTH SOLN 2 ML BOTTLE ONE (03:48)
== END 2021-06-15 04:27 | disposition home or self-care (01) ==
LOC: JER 02:13
DX: H10.32 Unspecified acute conjunctivitis, left eye (principal)
CPT/HCPCS: 99283-25

== ENCOUNTER 2022-12-07 17:33 | Emergency (ER) | payer OTHER ==
[2022-12-07 17:48] VITALS: BP 121/81; PULSE 111; RESP 18; TEMP 97.3; BMI 32.0
== END 2022-12-07 18:40 | disposition home or self-care (01) ==
LOC: JER 17:33 → JERFT 17:33
DX: R21 Rash and other nonspecific skin eruption (principal); L30.9 Dermatitis, unspecified
CPT/HCPCS: 99283-25

== ENCOUNTER 2024-02-07 13:35 | Observation (INO) | payer OTHER ==
[2024-02-07 15:59] LABS: BASO % 0.8 % (0-2.0); EOS % 0.7 % (0-4.5); HEMOGLOBIN 13.7 GM/dL (10.7-15.3); LYMPH % 43.1 % (8-40); MCH 25.5 pg (25.7-33.7); MCHC 32.5 g/dl (32.0-36.0); MEAN CELL VOLUME 78.5 fl (80-96); MEAN PLT VOLUME 9.3 fl (7.5-11.1); MONO % 7.3 % (3.8-10.2); NEUT % 48.1 % (42.8-82.8); PLATELET COUNT 233 10^3/uL (134-434); RBC 5.35 M/mm3 (3.60-5.2); WHITE BLOOD COUNT 8.3 K/mm3 (4.0-10.0)
[2024-02-07] MEDS: SODIUM CHLORIDE 0.9% 500 ML INFUS.BAG IV ONE (16:03)
[2024-02-07 16:14] LABS: POTASSIUM 3.9 mmol/L (3.5-5.1)
[2024-02-07 16:16] LABS: CALCIUM 9.4 mg/dL (8.5-10.1)
[2024-02-07 16:17] LABS: ALBUMIN 3.2 g/dl (3.4-5.0); BLOOD UREA NITROGEN 14.1 mg/dL (7-18)
[2024-02-07 16:20] LABS: CREATININE 0.9 mg/dL (0.55-1.3)
[2024-02-07 16:21] LABS: BILIRUBIN,TOTAL 0.3 mg/dL (0.2-1)
[2024-02-07 16:22] LABS: TOT PROT 7.1 g/dl (6.4-8.2)
[2024-02-07] MEDS ORDERED: ASPIRIN 81 MG CHEWABLE TABLETS ONE (18:33)
[2024-02-07] MEDS: ASPIRIN 81 MG CHEWABLE TABLETS PO ONE (18:40)
[2024-02-08 03:26] VITALS: BMI 35.2
[2024-02-08] MEDS: ALBUTEROL SO4 HFA INHALER IH SCH ×2 (04:22→04:46)
[2024-02-08] MEDS: ACETAMINOPHEN 325 MG TABLET (FP) PO PRN (04:26)
[2024-02-08] MEDS: INSULIN ASPART SLIDING SCALE (NOVOLOG) 1 VIAL SQ SCH (06:26)
[2024-02-08 07:47] LABS: POTASSIUM 3.7 mmol/L (3.5-5.1)
[2024-02-08 07:51] LABS: BLOOD UREA NITROGEN 17.5 mg/dL (7-18); CALCIUM 8.7 mg/dL (8.5-10.1)
[2024-02-08 07:54] LABS: CREATININE 0.8 mg/dL (0.55-1.3)
[2024-02-08 08:22] LABS: BASO % 0.5 % (0-2.0); EOS % 0.9 % (0-4.5); HEMATOCRIT 35.6 % (32.4-45.2); HEMOGLOBIN 11.7 GM/dL (10.7-15.3); LYMPH % 38.2 % (8-40); MCH 25.7 pg (25.7-33.7); MEAN PLT VOLUME 9.8 fl (7.5-11.1); NEUT % 53.4 % (42.8-82.8); PLATELET COUNT 202 10^3/uL (134-434); RBC 4.56 M/mm3 (3.60-5.2); RDW 13.6 % (11.6-15.6); WHITE BLOOD COUNT 8.9 K/mm3 (4.0-10.0)
[2024-02-08] MEDS: EZETIMIBE 10 MG TABLET (FP) PO SCH (09:39)
[2024-02-08] MEDS: LOSARTAN POTASSIUM 50 MG TABLET PO SCH (09:39)
[2024-02-08] MEDS: ASPIRIN COATED 81 MG TABLET.EC PO SCH (09:39)
[2024-02-08] MEDS: GABAPENTIN 300 MG CAPSULE PO SCH (09:39)
[2024-02-09] MEDS: REGADENOSON 0.4 MG/5 ML PRE-FILLED SYRINGE IVPUSH ONE (11:00)
[2024-02-09] MEDS ORDERED: REGADENOSON 0.4 MG/5 ML PRE-FILLED SYRINGE IVPUSH ONE (11:01)
[2024-02-09 14:29] VITALS: RESP 20
[2024-02-09 17:56] VITALS: BP 105/79; PULSE 88; TEMP 98.1
== END 2024-02-09 19:32 | disposition home or self-care (01) ==
LOC: JER 13:35 → JERBED 20:44 → J4W 02-08 01:47
PROVIDERS: ADMIT Internal Medicine; ATTEND Internal Medicine
PROC: 3E013VG Introduction of Insulin into Subcutaneous Tissue, Percutaneous Approach (ICD-10-PCS; principal; 2024-02-07)
PROC: 3E0337Z Introduction of Electrolytic and Water Balance Substance into Peripheral Vein, Percutaneous Approach (ICD-10-PCS; 2024-02-07)
PROC: 3E033GC Introduction of Other Therapeutic Substance into Peripheral Vein, Percutaneous Approach (ICD-10-PCS; 2024-02-07)
DX: R00.2 Palpitations (principal); R77.8 Other specified abnormalities of plasma proteins; E11.9 Type 2 diabetes mellitus without complications; R79.89 Other specified abnormal findings of blood chemistry; I10 Essential (primary) hypertension; E66.9 Obesity, unspecified; R00.0 Tachycardia, unspecified; D64.9 Anemia, unspecified; Z20.822 Contact with and (suspected) exposure to COVID-19; Z88.5 Allergy status to narcotic agent; Z90.49 Acquired absence of other specified parts of digestive tract; J44.9 Chronic obstructive pulmonary disease, unspecified; Z86.39 Personal history of other endocrine, nutritional and metabolic disease
CPT/HCPCS: 0241U-QW; 36415; 71045-TC-FY; 78452-TC; 80048; 80053; 80061; 82962; 83036; 83880; 84443; 84484; 85025; 93005; 93010; 93017; 93306-TC; 96372; 96374; 99285-25; A9502; G0378; J2785

== ENCOUNTER 2024-12-02 11:19 | Observation (INO) | payer OTHER ==
[2024-12-02 12:00] LABS: ABSOLUTE IMMATURE GRANULOCYTES 0.02 x10^3/uL (0.0-0.031); BASOPHILS # 0.05 x10^3/uL (0.01-0.08); EOSINOPHIL % 1.7 % (0.7-5.8); EOSINOPHILS # 0.14 x10^3/uL (0.04-0.36); HEMATOCRIT 40.3 % (34.1-44.9); HEMOGLOBIN 13.2 g/dL (11.2-15.7); MCHC 32.8 g/dl (32.2-35.5); MEAN CELL VOLUME 76.2 fl (79.4-94.8); MEAN PLT VOLUME 11.4 fl (9.4-12.3); MONOCYTE % 8.3 % (4.7-12.5); PLATELET COUNT 305 x10^3/uL (182-369); RDW 13.3 % (12.3-16.6)
[2024-12-02] MEDS ORDERED: METOPROLOL TARTRATE 5 MG/5 ML VIAL ONE (12:04)
[2024-12-02] MEDS ORDERED: ADENOSINE 6 MG/2 ML VIAL IVPUSH ONE (12:13)
[2024-12-02] MEDS: ADENOSINE 6 MG/2 ML VIAL IVPUSH ONE (12:16)
[2024-12-02 12:24] LABS: CHLORIDE 108 mmol/L (98-107); POTASSIUM 4.1 mmol/L (3.5-5.1); SODIUM 139 mmol/L (136-145)
[2024-12-02 12:28] LABS: ALBUMIN 3.2 g/dl (3.4-5.0); ANION GAP 7 mmol/L (4-13); BLOOD UREA NITROGEN 18.4 mg/dL (7-18); CALCIUM 9.6 mg/dL (8.5-10.1); CO2 24 mmol/L (21-32)
[2024-12-02 12:29] LABS: GLUCOSE,RANDOM 402 mg/dL (74-106)
[2024-12-02 12:32] LABS: BILIRUBIN,TOTAL 0.4 mg/dL (0.2-1); CREATININE 0.9 mg/dL (0.55-1.3); SGOT/AST 17 U/L (15-37); SGPT/ALT 23 U/L (13-61)
[2024-12-02 12:33] LABS: ALK PHOS 106 U/L (45-117)
[2024-12-02 12:37] LABS: N-TERMINAL BNP 141.3 pg/ml (5-125)
[2024-12-02] MEDS: METOPROLOL TARTRATE 5 MG/5 ML VIAL IVPUSH ONE (12:43)
[2024-12-02] MEDS: SODIUM CHLORIDE 0.9% 500 ML INFUS.BAG IV ONE (12:44)
[2024-12-02 13:57] LABS: VENOUS BASE EXCESS -1.1 mmol/L (-2-2); VENOUS PCO2 45.8 mmHg (38-52); VENOUS PH 7.351 (7.310-7.410)
[2024-12-02 14:07] LABS: URINE APPEARANCE CLEAR; URINE BILIRUBIN NEGATIVE (NEGATIVE); URINE COLOR YELLOW; URINE GLUCOSE (UA) 3+ (NEGATIVE); URINE KETONE NEGATIVE (NEGATIVE); URINE LEUK ESTERASE NEGATIVE (NEGATIVE); URINE NITRITE NEGATIVE (NEGATIVE); URINE PROTEIN NEGATIVE (NEGATIVE); URINE UROBILINOGEN 0.2 mg/dL (0.2-1.0)
[2024-12-02 15:57] VITALS: BMI 31.2
[2024-12-02] MEDS: GABAPENTIN 300 MG CAPSULE PO SCH (22:57)
[2024-12-02] MEDS: ATORVASTATIN CA 20 MG TABLET (FP) PO SCH (22:58)
[2024-12-02] MEDS: INSULIN ASPART SLIDING SCALE (NOVOLOG) 1 VIAL SQ SCH (22:58)
[2024-12-03 06:06] VITALS: RESP 16
[2024-12-03 07:07] LABS: ABSOLUTE IMMATURE GRANULOCYTES 0.01 x10^3/uL (0.0-0.031); BASOPHILS # 0.04 x10^3/uL (0.01-0.08); EOSINOPHIL % 2.8 % (0.7-5.8); EOSINOPHILS # 0.17 x10^3/uL (0.04-0.36); HEMATOCRIT 35.2 % (34.1-44.9); HEMOGLOBIN 11.7 g/dL (11.2-15.7); MCHC 33.2 g/dl (32.2-35.5); MEAN PLT VOLUME 11.5 fl (9.4-12.3); MONOCYTE # 0.47 x10^3/uL (0.24-0.86); MONOCYTE % 7.8 % (4.7-12.5); PLATELET COUNT 271 x10^3/uL (182-369); RDW 13.1 % (12.3-16.6)
[2024-12-03 07:13] LABS: POTASSIUM 3.9 mmol/L (3.5-5.1)
[2024-12-03 07:18] LABS: ALBUMIN 2.9 g/dl (3.4-5.0); BLOOD UREA NITROGEN 11.9 mg/dL (7-18); CALCIUM 9.5 mg/dL (8.5-10.1)
[2024-12-03 07:21] LABS: CREATININE 0.7 mg/dL (0.55-1.3)
[2024-12-03 07:23] LABS: BILIRUBIN,TOTAL 0.3 mg/dL (0.2-1)
[2024-12-03 07:40] LABS: TOT PROT 6.2 g/dl (6.4-8.2)
[2024-12-03] MEDS: LOSARTAN POTASSIUM 50 MG TABLET PO SCH (09:24)
[2024-12-03] MEDS: VERAPAMIL HCL 120 MG CAP SUSTAINED RELEASE PO SCH (10:28)
[2024-12-03] MEDS: EMPAGLIFLOZIN (JARDIANCE) 10 MG TABLET PO SCH (10:28)
[2024-12-03 12:01] VITALS: BP 141/97; PULSE 86; TEMP 97.9
[2024-12-03] MEDS ORDERED: INSULIN GLARGINE (LANTUS) 100 UNITS/ML UNITS SQ SCH (22:00)
== END 2024-12-03 13:59 | disposition home or self-care (01) ==
LOC: JER 11:19 → JERBED 12:38 → J4S 15:22
PROVIDERS: ADMIT Internal Medicine; ATTEND Internal Medicine
PROC: 3E033GC Introduction of Other Therapeutic Substance into Peripheral Vein, Percutaneous Approach (ICD-10-PCS; principal; 2024-12-02)
PROC: 3E013VG Introduction of Insulin into Subcutaneous Tissue, Percutaneous Approach (ICD-10-PCS; 2024-12-02)
PROC: 3E0337Z Introduction of Electrolytic and Water Balance Substance into Peripheral Vein, Percutaneous Approach (ICD-10-PCS; 2024-12-02)
DX: I47.10 Supraventricular tachycardia, unspecified (principal); E11.65 Type 2 diabetes mellitus with hyperglycemia; E78.5 Hyperlipidemia, unspecified; I10 Essential (primary) hypertension
CPT/HCPCS: 36415; 71045-TC-FY; 80053; 81003; 82010; 82803; 82962; 83036; 83735; 83880; 84439; 84443; 84484; 85025; 87086; 93005; 93010; 93306-TC; 96372; 96374; 99291; G0378